=== PATIENT | female | born 1965 | race Two or more races ===

== ENCOUNTER 2018-01-07 08:21 | Outpatient (CLI) | payer OTHER ==
[~2018-01-07 08:21] MED LIST: ADVAIR; MEDROL4 MG PO; NABUMETONE500 MG PO; PERCOCET 5/3251 TAB PO
== END 2018-01-07 08:26 | disposition home or self-care (01) ==
LOC: SONOGRAMA 08:21
DX: E04.1 Nontoxic single thyroid nodule (principal)